=== PATIENT | female | born 1930 | race Caucasian/White ===

== ENCOUNTER 2017-02-23 18:17 | Emergency (ER) | payer OTHER ==
[~2017-02-23] VITALS: Ht 157.5 cm; Wt 72.6 kg
[2017-02-23 19:24] VITALS: BP 119/59
[2017-02-23 20:12] LABS: BASOPHILS % (AUTO) 0.6 % (0.0-2.0); EOSINOPHILS # (AUTO) 0.2 K/uL (0-0.4); EOSINOPHILS % (AUTO) 2.8 % (0.0-4.0); HEMATOCRIT 44.7 % (36-48); HEMOGLOBIN 15.1 g/dL (12.0-16.0); LYMPHOCYTES # (AUTO) 1.2 K/uL (2.5-16.5); LYMPHOCYTES % (AUTO) 14.7 % (20.5-51.1); MEAN CORPUSCULAR HEMOGLOBIN 30 pg (27-31); MEAN CORPUSCULAR HGB CONC 34 g/dL (33-37); MEAN CORPUSCULAR VOLUME 89 fL (80-94); MONOCYTES # (AUTO) 0.7 K/uL (0.8-1.0); NEUTROPHILS # (AUTO) 6.2 K/uL (1.8-7.7); NEUTROPHILS % (AUTO) 73.9 % (42.2-75.2); PLATELET COUNT (AUTO) 177 K/uL (140-450); RED BLOOD CELL COUNT(AUTO) 5.05 MIL/uL (4.20-5.40); RED CELL DISTRIBUTION WIDTH 13.1 % (11.6-13.7); WHITE BLOOD COUNT (AUTO) 8.3 K/uL (4.8-10.8)
[2017-02-23 20:28] LABS: ANION GAP 14.5 (8-16); CALCIUM 8.4 mg/dL (8.5-10.1); CARBON DIOXIDE 24.7 mmol/L (21-32); CHLORIDE 101 mmol/L (98-107); CREATININE 1.1 mg/dL (0.6-1.3); GLUCOSE 217 mg/dL (74-106); POTASSIUM 5.2 mmol/L (3.5-5.1); SODIUM SERUM 135 mmol/L (136-145); UREA NITROGEN, BLOOD 25 mg/dL (7-18)
[2017-02-23 20:34] LABS: ALANINE AMINOTRANSFERASE 224 U/L (12-78); ALBUMIN 3.1 g/dL (3.4-5.0); ALKALINE PHOSPHATASE 159 U/L (46-116); ASPARTATE AMINOTRANSFERASE 181 U/L (15-37); LIPASE 233 U/L (73-393); TOTAL BILIRUBIN 1.5 mg/dL (0.0-1.0); TOTAL PROTEIN, SERUM 7.1 g/dL (6.4-8.2)
--- NOTE | 2017-02-23 21:31 | NUR ---
TO ER BED 8
--- NOTE | 2017-02-23 21:52 | NUR ---
86Y F BIB FAMILY C/O OF ABDOMINAL PAIN X1 WK. DENIES DIARRHEA AND VOMITTING, BUT HAS NAUSEA. NO DISTRESS NOTED.
[2017-02-23 23:10] VITALS: BP 119/59
--- NOTE | 2017-02-23 23:10 | NUR ---
Patient discharged with v/s stable. Written and verbal after care instructions given and explained. Patient alert, oriented and verbalized understanding of instructions. Ambulatory with steady gait. All questions addressed prior to discharge. ID band removed. Patient advised to follow up with PMD. Rx of PRILOSEC given. Patient educated on indication of medication including possible reaction and side effects. Opportunity to ask questions provided and answered.
== END 2017-02-23 23:10 | disposition home or self-care (01) ==
LOC: MED 18:17
DX: R10.13 Epigastric pain (principal); R79.89 Other specified abnormal findings of blood chemistry; E11.9 Type 2 diabetes mellitus without complications; I10 Essential (primary) hypertension
CPT/HCPCS: 36415; 80053; 81002; 83690; 84484; 85025; 99285

== ENCOUNTER 2018-08-31 14:27 | Emergency (ER) | payer OTHER ==
[~2018-08-31] VITALS: Ht 152.4 cm; Wt 75.7 kg
[2018-08-31 14:51] VITALS: BP 152/67
[2018-08-31 16:38] LABS: BASOPHILS # (AUTO) 0.1 K/uL (0.00-0.22); BASOPHILS % (AUTO) 1.4 % (0.0-2.0); EOSINOPHILS # (AUTO) 0.1 K/uL (0-0.4); EOSINOPHILS % (AUTO) 2.3 % (0.0-4.0); HEMATOCRIT 39.1 % (36-48); HEMOGLOBIN 13.2 g/dL (12.0-16.0); LYMPHOCYTES # (AUTO) 1.4 K/uL (2.5-16.5); LYMPHOCYTES % (AUTO) 29.6 % (20.5-51.1); MEAN CORPUSCULAR HEMOGLOBIN 31 pg (27-31); MEAN CORPUSCULAR HGB CONC 34 g/dL (33-37); MONOCYTES # (AUTO) 0.5 K/uL (0.8-1.0); MONOCYTES % (AUTO) 11.2 % (1.7-9.3); NEUTROPHILS # (AUTO) 2.6 K/uL (1.8-7.7); NEUTROPHILS % (AUTO) 55.5 % (42.2-75.2); PLATELET COUNT (AUTO) 137 K/uL (140-450); RED BLOOD CELL COUNT(AUTO) 4.21 MIL/uL (4.20-5.40); RED CELL DISTRIBUTION WIDTH 14.5 % (11.6-13.7); WHITE BLOOD COUNT (AUTO) 4.7 K/uL (4.8-10.8)
--- NOTE | 2018-08-31 16:48 | NUR ---
PATIENT PRESENTS TO ED WITH THE CHIEF C/O BLOOD SUGAR. ACCORDING TO SON BS HE CHECKED AT HOME WAS 417 AND 507. DENIES N/V/D; SKIN IS PINK/WARM/DRY; AAOX4 WITH EVEN AND STEADY GAIT; LUNGS CLEAR BL; HR EVEN AND REGULAR; PT DENIES ANY FEVER, CP, SOB, OR COUGH AT THIS TIME; PATIENT STATES PAIN OF 0/10 AT THIS TIME; VSS; PATIENT POSITIONED FOR COMFORT; HOB ELEVATED; BEDRAILS UP X2; BED DOWN. ER MD MADE AWARE OF PT STATUS.
[2018-08-31] MEDS ORDERED: NACL 0.9% 1,000 ML IV SCH (16:50)
[2018-08-31] MEDS ORDERED: INSULIN REGULAR, HUMAN 100 UNIT/ML VIAL SUBQ ONE (16:50)
[2018-08-31 16:58] LABS: ALBUMIN 2.3 g/dL (3.4-5.0); ANION GAP 7.1 (8-16); ASPARTATE AMINOTRANSFERASE 259 U/L (15-37); CARBON DIOXIDE 29.2 mmol/L (21-32); CHLORIDE 102 mmol/L (98-107); POTASSIUM 5.3 mmol/L (3.5-5.1); SODIUM SERUM 133 mmol/L (136-145); UREA NITROGEN, BLOOD 19 mg/dL (7-18)
[2018-08-31 17:04] LABS: GLUCOSE 509 mg/dL (74-106)
[2018-08-31 17:28] LABS: APPEARANCE,URINE CLEAR (CLEAR); COLOR,URINE YELLOW (YELLOW)
[2018-08-31 17:29] LABS: BILIRUBIN,URINE NEGATIVE (NEGATIVE); BLOOD, URINE NEGATIVE (NEGATIVE); LEUKOCYTE ESTERASE ,URINE NEGATIVE (NEGATIVE); NITRITE, URINE NEGATIVE (NEGATIVE); UGLUCOSE >=1000 (NEGATIVE)
--- NOTE | 2018-08-31 18:36 | NUR ---
BP 161/60 DR. MONTANO MADE AWARE.
--- NOTE | 2018-08-31 19:09 | NUR ---
REPORT GIVEN TO FISHER TRAP RN FOR CONTINUITY OF CARE. PT ON STABLE CONDITION.
--- NOTE | 2018-08-31 19:12 | NUR ---
REPORT RECEVIED FROM MARTA VILLAFUERTE
--- NOTE | 2018-08-31 19:13 | NUR ---
AWAITING DISCHARGE PAPERWORK FROM DR SINGH AT THIS TIME
[2018-08-31 19:56] VITALS: BP 161/60
--- NOTE | 2018-08-31 19:56 | NUR ---
Patient discharged with v/s stable. Written and verbal after care instructions given and explained. Patient alert, oriented and verbalized understanding of instructions. Ambulatory with steady gait. All questions addressed prior to discharge. ID band removed. Patient advised to follow up with PMD. Rx of VICTOZA PREFILLED PEN given. Patient educated on indication of medication including possible reaction and side effects. Opportunity to ask questions provided and answered.
== END 2018-08-31 19:35 | disposition home or self-care (01) ==
LOC: MED 14:27
DX: E11.65 Type 2 diabetes mellitus with hyperglycemia (principal); I10 Essential (primary) hypertension; E78.00 Pure hypercholesterolemia, unspecified; M19.90 Unspecified osteoarthritis, unspecified site; Z88.0 Allergy status to penicillin
CPT/HCPCS: 36415; 71045; 80053; 81003; 82948; 83690; 84484; 85025; 96360; 96372; 99285; J1815; Q0092; J7030

== ENCOUNTER 2019-04-22 17:10 | Inpatient (IN) | payer OTHER, MEDICAID ==
[~2019-04-22] VITALS: Ht 152.4 cm; Wt 58.1 kg
--- NOTE | 2019-04-22 07:20 | NUR ---
RECEIVED BEDSIDE REPORT FROM PROPRIETARY TRADER. PT A/O X1. HX DEMENTIA, SHOWS EVIDENCE OF CONFUSION. ABLE TO FOLLOW SIMPLE COMMANDS AND MAKE NEEDS KNOWN. STANDARD PRECAUTIONS. ALLERGY BRACELET. FALL RISK PRECAUTIONS IN PLACE. BED IN LOW POSITION. CALL LIGHT WITHIN REACH. YELLOW GOWN, SOCKS, SIGN, WRIST BAND. BED ALARM ACTIVE. ROOM AIR. NO SIGNS OF RESP DISTRESS. 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 DENIES PAIN. SKIN IS INTACT. L AC 20 G INFUSING NS WIDE OPEN. R WRIST 24 G INFUSING NS @250. PATENT AND INTACT. ABLE TO AMBULATE WITH ASSISTANCE. UNSTEADY GAIT. CONTINENT. DAUGHTER AT BEDSIDE. WILL CONTINUE TO MONITOR.
[2019-04-22 17:31] VITALS: BP 158/81
--- NOTE | 2019-04-22 17:38 | NUR ---
PT TO BED 3 WITH SON
--- NOTE | 2019-04-22 17:41 | NUR ---
88 Y FEMALE BIB SON C/O HIGH BLOOD SUGAR. REFERRED TO ED BY [facility]. C/O DIZZINESS, FATIGUE, POLYURIA, WEAKNESS X 3 DAYS. PT A&OX3 MINUS TIME. PT AT BASELINE PER SON. PT DENIES PAIN. VSS AT THIS TIME. PT INCONTINENT. BED IS DOWN, LOCKED, BED RAIL X 1, ERMD TO SEE PT. HX: DIABETES, HTN, HIGH CHOLESTEROL RX: PITO MIMS BS: JUAN LUIS
--- NOTE | 2019-04-22 17:47 | NUR ---
DR TORRES AT BEDSIDE
[2019-04-22] MEDS ORDERED: NACL 0.9% 1,000 ML IV ONE ×2 (17:50→19:00)
--- NOTE | 2019-04-22 18:02 | NUR ---
lab at bedside
--- NOTE | 2019-04-22 18:17 | NUR ---
PTS SON STATES PT IS UNABLE TO GIVE URINE AT THIS TIME. DOESNT WANT HER TO BE STRAIGHT CATHED YET. WOULD LIKE TO WAIT AND LET PT TRY TO USE RESTROOM
[2019-04-22 18:21] LABS: BASOPHILS % (AUTO) 0.7 % (0.0-2.0); EOSINOPHILS % (AUTO) 0.7 % (0.0-4.0); HEMOGLOBIN 13.1 g/dL (12.0-16.0); LYMPHOCYTES # (AUTO) 0.7 K/uL (2.5-16.5); LYMPHOCYTES % (AUTO) 13.9 % (20.5-51.1); MEAN CORPUSCULAR HEMOGLOBIN 32 pg (27-31); MEAN CORPUSCULAR HGB CONC 34 g/dL (33-37); MEAN CORPUSCULAR VOLUME 93.6 fL (80-94); MONOCYTES # (AUTO) 0.4 K/uL (0.8-1.0); MONOCYTES % (AUTO) 6.7 % (1.7-9.3); NEUTROPHILS # (AUTO) 4.1 K/uL (1.8-7.7); PLATELET COUNT (AUTO) 114 K/uL (140-450); RED BLOOD CELL COUNT(AUTO) 4.16 MIL/uL (4.20-5.40); RED CELL DISTRIBUTION WIDTH 13.4 % (11.6-13.7); WHITE BLOOD COUNT (AUTO) 5.3 K/uL (4.8-10.8)
--- NOTE | 2019-04-22 18:32 | NUR ---
PT AMB TO RESTROOM WITH ASSISTANCE FROM SON
[2019-04-22] MEDS ORDERED: SITA100T8 PO (18:47)
[2019-04-22] MEDS ORDERED: BENA20TA PO (18:49)
[2019-04-22] MEDS ORDERED: LOSA100T51 PO (18:50)
[2019-04-22] MEDS ORDERED: LIRA6SOL SC (18:51)
[2019-04-22 18:55] LABS: ALBUMIN 2.6 g/dL (3.4-5.0); ANION GAP 8.9 (8-16); ASPARTATE AMINOTRANSFERASE 39 U/L (15-37); CARBON DIOXIDE 25.5 mmol/L (21-32); CHLORIDE 98 mmol/L (98-107); CREATININE 1.1 mg/dL (0.6-1.3); POTASSIUM 4.4 mmol/L (3.5-5.1); SODIUM SERUM 128 mmol/L (136-145); TOTAL BILIRUBIN 0.8 mg/dL (0.0-1.0); UREA NITROGEN, BLOOD 25 mg/dL (7-18)
[2019-04-22 18:57] LABS: GLUCOSE 727 mg/dL (74-106)
--- NOTE | 2019-04-22 18:59 | NUR ---
727 BS REPORTED FROM LAB
[2019-04-22] MEDS ORDERED: INSULIN REGULAR, HUMAN 100 UNIT/ML VIAL IVP ONE (19:00)
[2019-04-22 19:07] LABS: APPEARANCE,URINE CLEAR (CLEAR); BILIRUBIN,URINE NEGATIVE (NEGATIVE); COLOR,URINE YELLOW (YELLOW); LEUKOCYTE ESTERASE ,URINE NEGATIVE (NEGATIVE); NITRITE, URINE NEGATIVE (NEGATIVE); UGLUCOSE 3+ (NEGATIVE)
[2019-04-22 19:15] LABS: BLOOD, URINE NEGATIVE (NEGATIVE)
[2019-04-22] MEDS ORDERED: DOCUSATE SODIUM 100 MG GELCAP PO PRN (19:15)
[2019-04-22] MEDS ORDERED: ACETAMINOPHEN 325 MG TAB PO PRN (19:15)
[2019-04-22] MEDS ORDERED: HYDROcodone/APAP 5/325 MG 1 TAB TAB PO PRN (19:15)
[2019-04-22] MEDS ORDERED: ONDANSETRON 4 MG/2 ML VIAL IM/IVP PRN (19:15)
[2019-04-22] MEDS ORDERED: MORPHINE SULFATE 2 MG/ML SYR IVP PRN (19:15)
--- NOTE | 2019-04-22 19:20 | NUR ---
Patient will be admitted to care of EVELYNE. Admited to TELE. Will go to room 122B. Belongings list completed. Report to NILS LOZANO. PT HAS 900 ML NS STILL RUNNING IN R WRIST AT 250 MLS/HR AND 100 ML NS STILL RUNNING WIDE OPEN L AC
[2019-04-22] MEDS ORDERED: DEXTROSE 50% 50 ML SYR IVP PRN (19:35)
[2019-04-22 19:39] LABS: PROTHROMBIN TIME 10.5 secs (10.8-13.4)
[2019-04-22] MEDS ORDERED: MEDICATION REC. PHARMACY CONS. 1 EA MISC MC PRN (19:40)
[2019-04-22 19:46] LABS: MAGNESIUM 2.2 mg/dL (1.8-2.4); PHOSPHORUS 3.5 mg/dL (2.5-4.9); THYROID STIMULATING HORMONE 0.62 uIU/mL (0.34-3.74)
[2019-04-22] MEDS: NACL 0.9% 1,000 ML IV SCH (20:30)
--- NOTE | 2019-04-22 21:00 | NUR ---
ADMINISTERED SCHEDULED MEDS. EDUCATED ON SIDE EFFECTS. VERBALIZED UNDERSTANDING. BLOOD GLUCOSE 443. ADMINISTERED 10UNITS HUMALOG SLIDING SCALE PER PROTOCOL. TOLERATED WELL. WILL CONTINUE TO MONITOR.
[2019-04-22] MEDS: BLOOD GLUCOSE MONITORING 1 DEV DEV FS SCH (21:11)
[2019-04-22] MEDS: INSULIN LISPRO SLIDING SCALE 100 UNITS/ML VIAL SUBQ PRN (21:25)
--- NOTE | 2019-04-22 22:30 | NUR ---
PT CONFUSED A/O X1. SPEAKING [place]ER ABOUT GOING HOME. CHECKING THE DOORS. WASHING DISHES. AND HER YOUNG CHILDREN CRYING. ASSISTED BACK TO BED. PT UNCOOPERATIVE. REFUSED TO GO BACK TO BED. WILL CONTINUE TO MONITOR.
--- NOTE | 2019-04-22 23:00 | NUR ---
PT UP AWAKE AND AMBULATING. ADVISED TO SIT IN BED. REFUSED. UNSTEADY GAIT. PT UNCOOPERATIVE. WILL CONTINUE TO MONITOR.
--- NOTE | 2019-04-22 23:15 | NUR ---
CALLED DAUGHTER TO GET BASELINE OF PT'S CONFUSION. DAUGHTER REQUESTED TO ADVOCATE TO MD TO ADMINISTER MEDICATION TO ASSIST PT TO SLEEP. DAUGHTER STATES THAT SHE IS CONFUSED DAILY AND THAT PT IS VERY INDEPENDENT. SHE OVERESTIMATES HER OWN LIMITATIONS. WILL CONTINUE TO MONITOR.
--- NOTE | 2019-04-22 23:30 | NUR ---
ATTEMPTED TO GIVE MELATONIN PRN PO. PT REFUSED. EDUCATED ON SIDE EFFECTS. PT REFUSED. UNCOOPERATIVE. WILL CONTINUE TO MONITOR.
[2019-04-22] MEDS: MELATONIN 3 MG TAB PO PRN (23:34)
--- NOTE | 2019-04-22 23:45 | NUR ---
PT REQUESTED TO CALL HER CHILDREN. CALLED DAUGHTER SUNIL, TO ASSIST WITH CALMING PT. WILL CONTINUE TO MONITOR.
[2019-04-22] MEDS ORDERED: HALOPERIDOL IM 5 MG/ML VIAL IM ONE (23:50)
[2019-04-23] VITALS: BP 166/71
--- NOTE | 2019-04-23 | NUR ---
PT UNCOOPERATIVE. CONFUSED. WALKING AROUND UNIT. UNSTEADY GAIT. NEEDS ASSISTANCE, UNABLE TO AMBULATE ALONE. DIRECTED BY MD TO GIVE PT HALDOL PRN DOSE. EDUCATED. CHARGE NURSE, AND HAIR ASSISTANT AT BEDSIDE FOR ASSISTANCE. TOLERATED WELL.
[2019-04-23] MEDS ORDERED: HALOPERIDOL IM 5 MG/ML VIAL ONE (00:04)
[2019-04-23] MEDS: BLOOD GLUCOSE MONITORING 1 DEV DEV FS SCH ×4 (00:15→20:34)
--- NOTE | 2019-04-23 00:15 | NUR ---
BLOOD SUGAR CHECKED 374. MADE MD AWARE. HE DIRECTED TO GIVE 4 UNITS INSULIN HUMALOG. EDUCATED PT ON SIDE EFFECTS AND REASON FOR INSULIN. VERBALIZED UNDERSTANDING. WILL CONTINUE TO MONITOR.
--- NOTE | 2019-04-23 01:52 | NUR ---
PT REMAIN AWAKE UNCOOPERATIVE IN CHAIR AT BEDSIDE. REORIENTED HER TO THE DATE AND TIME AND ASKED IF SHE COULD GO INTO BED. PT REFUSED. REMINDED PT THAT HER IV FLUIDS NEED TO BE CONNECTED TO HER IV SITE. PT REFUSED TO HAVE FLUIDS CONNECTED. WILL CONTINUE TO MONITOR AT BEDSIDE.
--- NOTE | 2019-04-23 03:14 | NUR ---
PT REFUSED TO HAVE TELE MONITOR ON. PT PULLED OFF TELE MONITOR. I MADE MD, CHARGE, AND SENIOR CONTROL SYSTEMS ENGINEER AWARE. PT IS IN STABLE CONDITION. WILL CONTINUE TO MONITOR.
[2019-04-23 04:00] VITALS: BP 168/72
--- NOTE | 2019-04-23 04:10 | NUR ---
ASSISTED PT INTO BED. PT COOPERATED WITH GOING INTO BED. NOW LAYING IN BED. RECONNECTED PT TO TELE MONITOR. NO SIGNS OF DISTRESS. BED IN LOW POSITION. CALL LIGHT WITHIN REACH. WILL CONTINUE TO MONITOR.
--- NOTE | 2019-04-23 04:15 | NUR ---
PT REFUSED TO BE PUT BACK ON FLUID ON IV PUMP. WILL CONTINUE TO MONITOR.
--- NOTE | 2019-04-23 05:29 | NUR ---
PT REFUSED LAB DRAW BY MANAGER BATTERY. PT REMOVED TELE MONITOR. ADVISED TO KEEP IT ON AND READJUST. PT REFUSED. WILL CONTINUE TO MONITOR.
--- NOTE | 2019-04-23 05:45 | NUR ---
ASSISTED TO USE BEDSIDE COMMODE. TOLERATED WELL. NO SIGNS OF DISTRESS. REPOSITIONED IN BED WITH ASSIST OF REVENUE INVESTIGATOR. WILL CONTINUE TO MONITOR.
[2019-04-23] MEDS: INSULIN LISPRO SLIDING SCALE 100 UNITS/ML VIAL SUBQ PRN ×3 (06:53→20:42)
--- NOTE | 2019-04-23 06:56 | NUR ---
BLOOD SUGAR CHECKED. 188. INSULIN COVERAGE NEEDED. 2 UNITS WILL BE GIVEN SUB Q. EDUCATED AND TOLERATED WELL. NO SIGNS OF DISTRESS. CALL LIGHT WITHIN REACH. WILL CONTINUE TO MONITOR.
--- NOTE | 2019-04-23 07:01 | NUR ---
WILL ENDORSE PT TO DAYSCELIA HIGUERA. PT IN STABLE CONDITION. BED IN LOW POSITION. CALL LIGHT WITHIN REACH. WILL CONTINUE TO MONITOR.
--- NOTE | 2019-04-23 07:21 | NUR ---
RECEIVED BEDSIDE REPORT FROM TRAFFIC LINE PAINTER RN. PT A/O X1. SHOWS EVIDENCE OF CONFUSION BUT NO HX OF DEMENTIA ACCORDING TO SON AND PT HAS BEEN EXHIBITING CONFUSION FOR A FEW WEEKS NOW. ABLE TO FOLLOW SIMPLE COMMANDS AND MAKE NEEDS KNOWN BUT NEEDS CONSTANT REINFORCEMENT AND REMINDERS FOR SAFETY AND REORIENTATION TO REALITY. STANDARD PRECAUTIONS. FALL RISK PRECAUTIONS IN PLACE. BED IN LOW POSITION. CALL LIGHT WITHIN REACH. YELLOW GOWN, SOCKS, SIGN, WRIST BAND. BED ALARM ACTIVE. ROOM AIR. NO SIGNS OF RESP DISTRESS. 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 DENIES PAIN. SKIN IS INTACT. L AC 20 G AND R WRIST 24 G PATENT AND INTACT, SALINE LOCKED DUE TO PT REFUSING FLUIDS AT THIS TIME. ABLE TO AMBULATE WITH ASSISTANCE. UNSTEADY GAIT. CONTINENT. SON AT BEDSIDE. WILL ROUND FREQUENTLY ON PT.
--- NOTE | 2019-04-23 07:52 | NUR ---
PATIENT HAS BEEN SCREENED AND CATEGORIZED MODERATE NUTRITION RISK. PATIENT WILL BE SEEN WITHIN 3-5 DAYS OF ADMISSION. 04/25/[address]
[2019-04-23 08:00] VITALS: BP 158/85
[2019-04-23] MEDS: NACL 0.9% 1,000 ML IV SCH ×2 (08:27→20:46)
[2019-04-23] MEDS ORDERED: LOSARTAN 50 MG TAB PO SCH (09:00)
[2019-04-23] MEDS ORDERED: BENAZEPRIL 10 MG TAB PO SCH (09:00)
--- NOTE | 2019-04-23 09:38 | NUR ---
ADMINISTERED MORNING MEDS TO PT. PT TOLERATED THEM WELL. ALL NEEDS CURRENTLY MET. PT SON AT BEDSIDE HELPING WITH PT. WILL CONTINUE TO ROUND FREQUENTLY. BED IN LOWEST POSITION, CALL LIGHT WITHIN REACH.
[2019-04-23 09:56] LABS: BASOPHILS % (AUTO) 0.4 % (0.0-2.0); EOSINOPHILS # (AUTO) 0.1 K/uL (0-0.4); EOSINOPHILS % (AUTO) 1.4 % (0.0-4.0); HEMATOCRIT 40.3 % (36-48); HEMOGLOBIN 13.8 g/dL (12.0-16.0); LYMPHOCYTES # (AUTO) 1.9 K/uL (2.5-16.5); LYMPHOCYTES % (AUTO) 21.7 % (20.5-51.1); MEAN CORPUSCULAR HEMOGLOBIN 31 pg (27-31); MEAN CORPUSCULAR HGB CONC 34 g/dL (33-37); MEAN CORPUSCULAR VOLUME 91.5 fL (80-94); MONOCYTES # (AUTO) 0.6 K/uL (0.8-1.0); MONOCYTES % (AUTO) 6.5 % (1.7-9.3); NEUTROPHILS # (AUTO) 6.2 K/uL (1.8-7.7); PLATELET COUNT (AUTO) 127 K/uL (140-450); RED BLOOD CELL COUNT(AUTO) 4.41 MIL/uL (4.20-5.40); RED CELL DISTRIBUTION WIDTH 13.3 % (11.6-13.7); WHITE BLOOD COUNT (AUTO) 8.8 K/uL (4.8-10.8)
[2019-04-23 10:50] LABS: ANION GAP 10.1 (8-16); CARBON DIOXIDE 26.2 mmol/L (21-32); CHLORIDE 106 mmol/L (98-107); CREATININE 0.7 mg/dL (0.6-1.3); GLUCOSE 185 mg/dL (74-106); POTASSIUM 3.3 mmol/L (3.5-5.1); SODIUM SERUM 139 mmol/L (136-145); UREA NITROGEN, BLOOD 19 mg/dL (7-18)
[2019-04-23 10:58] LABS: CHOL/HDL RATIO 2.1 (1-4.5)
--- NOTE | 2019-04-23 11:52 | NUR ---
PT RESTING IN BEDSIDE CHAIR EATING LUNCH. ALL NEEDS CURRENTLY MET. NO SIGNS OF PAIN OR DISTRESS. SON AT BEDSIDE HELPING FEED PT. WILL CONTINUE TO ROUND FREQUENTLY. BED IN LOWEST POSITION AND CALL LIGHT WITHIN REACH.
[2019-04-23 12:00] VITALS: BP 150/74
--- NOTE | 2019-04-23 13:48 | NUR ---
PT RESTING IN BED. NO SIGNS OF PAIN OR DISTRESS. BED IN LOW POSITION, CALL LIGHT WITHIN REACH. WILL CONTINUE TO ROUND FREQUENTLY.
[2019-04-23] MEDS ORDERED: POTASSIUM CHLORIDE 10 MEQ TABER PO SCH (14:00)
[2019-04-23] MEDS ORDERED: ALPR0.5T2 PO (15:27)
--- NOTE | 2019-04-23 15:57 | NUR ---
PT SLEEPING IN BED. SON AT BEDSIDE. NO SIGNS OD PAIN OR SOB AT THIS TIME. WILL CONTINUE TO ROUND FREQUENTLY. BED IN LOW POSITION, CALL LIGHT WITHIN REACH.
[2019-04-23 16:00] VITALS: BP 154/65
[2019-04-23] MEDS ORDERED: LORazepam 2 MG/ML VIAL IVP PRN (16:45)
--- NOTE | 2019-04-23 17:48 | NUR ---
PT SITTING UP IN BED EATING DINNER. SON AT BEDSIDE ASSISTING HER WITH HER MEAL. NO SIGNS OF PAIN OR DISTRESS. WILL CONTINUE TO ROUND FREQUENTLY.
--- NOTE | 2019-04-23 19:26 | NUR ---
ENDORSED PT TO MEDICAL SOCIOLOGIST FOR CONTINUITY OF CARE. PT IN STABLE CONDITION AT THIS TIME.
--- NOTE | 2019-04-23 19:27 | NUR ---
RECEIVED REPORT FROM AM SHIFT NURSE FOR CONTINUITY OF CARE. PATIENT LYING DOWN IN BED, AWAKE, ALERT, FAMILY MEMBER AT BEDSIDE. PATIENT IS ON ROOM AIR. IV ON RIGHT HAND/WRIST 24 GA WITH NO FLUID INFUSING AT THIS TIME. PATIENT DENIES PAIN AT THIS TIME. BED IS IN LOW POSITION, SIDE RAILS ARE UP, AND CALL LIGHT IS WITHIN REACH. WILL MONITOR PATIENT THROUGHOUT SHIFT.
[2019-04-23 20:00] VITALS: BP 171/67
--- NOTE | 2019-04-23 20:00 | NUR ---
SON OF PATIENT BROUGHT AT HOME TIMOTHY. ACCORDING TO SON DR BOSTON WANTED HIM TO BRING THE MEDICATION. PLACED MEDICATION AND 4 STERILE NEEDLES IN PHARMACEUTICAL BAG, SEALED, SON SIGNED AND PLACED IN FRIDGE IN MEDICATION ROOM. CHARGE NURSE RODGER RAY.
--- NOTE | 2019-04-23 20:42 | NUR ---
BG 202 GAVE 4 UNITS HUMALOG
[2019-04-23] MEDS: MELATONIN 3 MG TAB PO PRN (20:43)
--- NOTE | 2019-04-23 21:39 | NUR ---
PATIENT AGITATED AND TRYING TO GET OUT OF BED, GAVE ATIVAN
[2019-04-23] MEDS ORDERED: amLODIPine 5 MG TAB PO SCH (23:00)
--- NOTE | 2019-04-23 23:00 | NUR ---
PATIENT SLEEPING IN BED, HOB AT 30 DEGREES, BED ALARM ON.
[2019-04-24] VITALS (9 sets, daily range): BP systolic 91–194; BP diastolic 55–98
--- NOTE | 2019-04-24 00:32 | NUR ---
BP 166/95, [facility]
--- NOTE | 2019-04-24 02:00 | NUR ---
MADE ROUNDS, PATIENT LYING IN BED ASLEEP, WITH NO SIGNS OF DISTRESS. WILL CONTINUE TO MONITOR PATIENT.
--- NOTE | 2019-04-24 02:40 | NUR ---
NOTED BRUISES ON LEFT INNER THIGH AND LEFT OUTER KNEE AREA THAT APPEARS TO BE HEALING. SKIN IS INTACT.
[2019-04-24] MEDS ORDERED: hydrALAZINE 20 MG/ML VIAL IVP SCH (05:00)
--- NOTE | 2019-04-24 05:00 | NUR ---
PATIENT LYING DOWN IN BED, ASLEEP. ADMINISTERED HYDRALAZINE 10 MG IV PUSH ORDERED. WILL CHECK VITAL SIGNS AFTER AN HOUR. Addendum: 04/24/19 at 0532 by Betty Fernandez RN ADDITIONAL INFORMATION: BP 194/83, T 97.3, HR 94, RR 16, O2 - 99%
[2019-04-24] MEDS: BLOOD GLUCOSE MONITORING 1 DEV DEV FS SCH ×4 (05:13→20:37)
[2019-04-24] MEDS: INSULIN LISPRO SLIDING SCALE 100 UNITS/ML VIAL SUBQ PRN ×4 (05:56→20:39)
--- NOTE | 2019-04-24 06:00 | NUR ---
PATIENT REASSESSED AND VITAL SIGNS TAKEN AND CHARTED. BP 175/70 (81) HR 105. NOTIFIED MD AND WILL ENDORSE TO AM SHIFT NURSE.
--- NOTE | 2019-04-24 07:02 | NUR ---
ENDORSED PATIENT TO AM SHIFT NURSE FOR CONTINUITY OF CARE. PATIENT LYING DOWN, ASLEEP, WITH NO SIGNS OF DISTRESS. PATIENT IS IN STABLE CONDITION.
[2019-04-24 07:15] LABS: ANION GAP 14.5 (8-16); CARBON DIOXIDE 22.3 mmol/L (21-32); CHLORIDE 105 mmol/L (98-107); CREATININE 0.7 mg/dL (0.6-1.3); GLUCOSE 173 mg/dL (74-106); POTASSIUM 3.8 mmol/L (3.5-5.1); SODIUM SERUM 138 mmol/L (136-145); UREA NITROGEN, BLOOD 18 mg/dL (7-18)
--- NOTE | 2019-04-24 07:40 | NUR ---
PATIENT WAS AWAKE, ALERT. PATIENT WAS FOUND OFF OXYGEN, SPO2 83%, NO DISTRESS, SOB NOTED. PATIENT WAS PLACED ON 3L NC SPO2 92%. SKIN DRY AND WARM. IV PATENT AND INTACT. COMPLAINED OF CONSTIPATION, AND STOMACH CRAMP, WILL MEDICATE PER ORDER. PLAN OF CARE WAS DISCUSSED WITH PATIENT. BED AT LOW POSITION, SIDE RAILS UP. CALL LIGHT WITHIN REACH Addendum: 04/24/19 at 0800 by Starr Smith RN WRONG PATIENT
--- NOTE | 2019-04-24 07:50 | NUR ---
PATIENT WAS AWAKE, TAKING OFF HER CLOTHING, NOT FOLLOW COMMAND. RESPIRATION EVEN, UNLABOR ON ROOM AIR. SKIN DRY AND WARM. IV PATENT AND INTACT. PLAN OF CARE WAS DISCUSSED WITH PATIENT, PT UNABLE TO COMPREHEND. BED AT LOW POSITION, SIDE RAILS UP. BED ALARM ACTIVE
[2019-04-24] MEDS ORDERED: LIRAGLUTIDE 1.2 MG SCH (09:00)
[2019-04-24] MEDS: BENAZEPRIL 10 MG TAB PO SCH ×2 (09:15→20:33)
[2019-04-24] MEDS: VICTOZA PEN SUBQ SCH (09:18)
[2019-04-24 09:49] LABS: BASOPHILS # (AUTO) 0.1 K/uL (0.00-0.22); BASOPHILS % (AUTO) 0.8 % (0.0-2.0); EOSINOPHILS # (AUTO) 0.2 K/uL (0-0.4); EOSINOPHILS % (AUTO) 2.4 % (0.0-4.0); HEMATOCRIT 41.9 % (36-48); LYMPHOCYTES # (AUTO) 2.2 K/uL (2.5-16.5); MEAN CORPUSCULAR HEMOGLOBIN 32 pg (27-31); MEAN CORPUSCULAR HGB CONC 35 g/dL (33-37); MONOCYTES # (AUTO) 0.7 K/uL (0.8-1.0); MONOCYTES % (AUTO) 9.6 % (1.7-9.3); NEUTROPHILS # (AUTO) 4.5 K/uL (1.8-7.7); NEUTROPHILS % (AUTO) 58.2 % (42.2-75.2); PLATELET COUNT (AUTO) 141 K/uL (140-450); RED CELL DISTRIBUTION WIDTH 13.6 % (11.6-13.7); WHITE BLOOD COUNT (AUTO) 7.7 K/uL (4.8-10.8)
[2019-04-24 09:57] LABS: HEMOGLOBIN 14.4 g/dL (12.0-16.0)
--- NOTE | 2019-04-24 10:18 | NUR ---
ENDORSEMENT GIVEN TO MASON RN FOR CONTINUITY OF CARE. PATIENT IS STABLE AT THIS TIME
--- NOTE | 2019-04-24 11:00 | NUR ---
RECEIVED REPORT ABOUT THE PT FROM MARTA CUEVAS, PT IS ASLEEP LYING ON THE BED WITH SIDE RAILS UP AND CALL LIGHT WITHIN REACH, HAS AN IV LINE ON THE RT HAND G.[address], NO SIGN OF DISTRESS NOTED AND WILL MONITOR PT.
[2019-04-24] MEDS: NACL 0.45% 1,000 ML IV SCH (11:54)
--- NOTE | 2019-04-24 11:54 | NUR ---
PT IS AWAQKE AND LYING ON THE BED WITH SON ON THE BEDSIDE, BLOOD GLUCOSE CHECK DONE AND RESULT IS 204, 4 UNITS INSULIN WAS GIVEN JULIÁN THE LEFT UA, PT TOLERATED IT. WILL MONITOR PT.
--- NOTE | 2019-04-24 12:49 | NUR ---
04/24/19 RD INITIAL ASSESSMENT COMPLETED PLEASE REFER TO NUTRITION ASSESSMENT UNDER CARE ACTIVITY FOR ESTIMATED NUTRITIONAL NEEDS. [facility]. [facility] TOLERATED 2. DIABETES EDUCATION WAS PROVIDED 3. RD TO FOLLOW-UP 5-7 DAYS, LOW RISK LELAND ZIEGLER RD
--- NOTE | 2019-04-24 16:30 | NUR ---
PT WAS GIVEN 4 UNITS INSULIN NOW FOIR A BLOOD GLUCOSE OF 202. WILL MONITOR PT.
--- NOTE | 2019-04-24 16:45 | NUR ---
PERIPHERAL LINE ON THE RT WRIST WAS INFILTRATED AND WAS REMOVED.
--- NOTE | 2019-04-24 17:00 | NUR ---
A NEW PERIPHERAL LINE WAS INSERTED TO PT ON THE LEFT FOREARM G.22.
--- NOTE | 2019-04-24 19:17 | NUR ---
ENDORSED PT TO HEALTH INSPECTOR NURSE FOR CONTINUITY OF CARE.
--- NOTE | 2019-04-24 19:20 | NUR ---
RECEIVED FROM AM RN IN BED FEMALE 88 YEARS OLD PT. WANTING TO GET OUT OF BED. SON AT BEDSIDE WATCHING PT. CALL LIGHT WITH IN REACH AND CARE PLANS FOR THE NIGHT DISCUSSED WITH SON. IVF SITE INTACT AND NO INFILTRATION NOTED. TELEMETRY/CARDIAC MONITORING. DX. OF UNCONTROLLED DM.
[2019-04-24] MEDS ORDERED: LORazepam 2 MG/ML VIAL IVP ONE (20:30)
--- NOTE | 2019-04-24 20:40 | NUR ---
PT. VERY RESTLESS AND WANTING TO WALK IN THE HALLWAY. SON REQUESTED TO HAVE IV ATIVAN AGAIN RT HARD TO CONTROL PT. DAUGHTER OF PT. ALSO AGREED TO HAVE IV ATIVAN BE GIVEN AGAIN. RESIDENT MD IN HERE TO TALK TO THE FAMILY AND [id number] ATIVAN IV TO BE ADMINISTERED . SON AND DAUGHTER AT THIS TIME ENCOURAGED TO STAY FOR NOW TO PACIFY PT.
[2019-04-24] MEDS ORDERED: amLODIPine 5 MG TAB PO SCH ×2 (21:00)
[2019-04-24] MEDS ORDERED: LORazepam 2 MG/ML VIAL IVP SCH (21:00)
[2019-04-24] MEDS ORDERED: OLANZapine 2.5 MG TAB PO SCH (21:00)
--- NOTE | 2019-04-24 22:00 | NUR ---
PT. SLEEPING AT THIS TIME. FAMILY STILL HERE TO WATCH OVER HER. PREVIOUS 2100 HTN MEDICATION NOT TAKEN RT PT. SPITS MEDICATION OUT AND REFUSED TO TAKE IT. MADE RESIDENT MD AWARE.
[2019-04-25 00:02] VITALS: BP 137/48
[2019-04-25 03:36] VITALS: BP 104/43
--- NOTE | 2019-04-25 03:43 | NUR ---
ENDORSED TO THE NEXT RN FOR CONTINUITY OF CARE. DAUGHTER OF PT. IN HERE STILL WATCHING OVER MOTHER. NO COMPLAINTS DONE. VITAL SIGNS TAKEN AND PT. WOKE UP AND COMPLAINED. DAUGHTER PACIFIED HER AND WENT BACK TO SLEEP. CARDIAC TELEMETRY IN PLACE.
--- NOTE | 2019-04-25 03:44 | NUR ---
RECEIVED REPORT FROM NURSE MARCO A FOR CONTINUOUS OF CARE. PT STABLE, NO DISTRESS NOTED, DAUGHTER AT BEDSIDE, WILL CONTINUE TO MONITOR.
[2019-04-25] MEDS: NACL 0.45% 1,000 ML IV SCH (03:45)
[2019-04-25] MEDS: BLOOD GLUCOSE MONITORING 1 DEV DEV FS SCH ×2 (06:23→11:38)
[2019-04-25 07:12] LABS: BASOPHILS # (AUTO) 0.1 K/uL (0.00-0.22); BASOPHILS % (AUTO) 0.9 % (0.0-2.0); EOSINOPHILS # (AUTO) 0.1 K/uL (0-0.4); EOSINOPHILS % (AUTO) 1.6 % (0.0-4.0); HEMATOCRIT 39.2 % (36-48); HEMOGLOBIN 13.4 g/dL (12.0-16.0); LYMPHOCYTES % (AUTO) 28.1 % (20.5-51.1); MEAN CORPUSCULAR HEMOGLOBIN 32 pg (27-31); MEAN CORPUSCULAR HGB CONC 34 g/dL (33-37); MEAN CORPUSCULAR VOLUME 92.8 fL (80-94); MONOCYTES # (AUTO) 0.6 K/uL (0.8-1.0); MONOCYTES % (AUTO) 8.4 % (1.7-9.3); NEUTROPHILS # (AUTO) 4.4 K/uL (1.8-7.7); PLATELET COUNT (AUTO) 120 K/uL (140-450); RED BLOOD CELL COUNT(AUTO) 4.23 MIL/uL (4.20-5.40); RED CELL DISTRIBUTION WIDTH 13.8 % (11.6-13.7); WHITE BLOOD COUNT (AUTO) 7.2 K/uL (4.8-10.8)
--- NOTE | 2019-04-25 07:25 | NUR ---
ENDORSED PT TO DAY SHIFT NURSE LALI LOZANO, PT STABLE, NO DISTRESS NOTED, SON AT BEDSIDE, CALL LIGHT WITHIN REACH.
--- NOTE | 2019-04-25 07:26 | NUR ---
RECEIVED BED SIDE REPORT FROM BULLET SLUGS INSPECTOR XANDER LOZANO. PT SLEEPING, SON AT BEDSIDE, WALKER NEAR DOOR, L FOREARM 22G RUNNING 1/2 NS AT 50CC/HR. PT APPEARS IN NO RESPIRATORY DISTRESS AND IN NO PAIN. ON RA. WILL CONTINUE TO MONITOR
[2019-04-25 07:40] LABS: ANION GAP 11.6 (8-16); CARBON DIOXIDE 23.1 mmol/L (21-32); CHLORIDE 106 mmol/L (98-107); CREATININE 0.8 mg/dL (0.6-1.3); GLUCOSE 156 mg/dL (74-106); POTASSIUM 3.7 mmol/L (3.5-5.1); SODIUM SERUM 137 mmol/L (136-145); UREA NITROGEN, BLOOD 21 mg/dL (7-18)
[2019-04-25 08:00] VITALS: BP 132/69
--- NOTE | 2019-04-25 08:19 | NUR ---
PT AWAKE BUT SLEEPY BUT AROUSABLE. SON AT BEDSIDE. MAMADOU PRESENT. CAME TO SEE PT, SAID THAT IF BP AND SUGAR STABLE, OKAY OT DC AFTER LUNCH. CONSULT FOR PENDING. EDUCATED PT ON THE IMPORTANCE OF TAKING ALL OF ANTIDIABETIC AND INSULIN MEDS. PER SON, PT DOES NOT LET HIM INJECT HER WITH INSULIN. WILL CONTINUE TO MONITOR
[2019-04-25] MEDS: BENAZEPRIL 10 MG TAB PO SCH (08:40)
[2019-04-25] MEDS: VICTOZA PEN SUBQ SCH (08:41)
--- NOTE | 2019-04-25 09:45 | NUR ---
PT WORKED WITH PATIENT. PT NOTIFIED ME OF ELEVATED BP AFTER PT FINISHED WITH HER. BP WAS 213/96. SAT PT BACK TO BED, RE-TOOK BP AND NOW AT 125/74. PT IN NO RESPIRATORY DISTRESS AND APPEARS IN NO PAIN.
[2019-04-25] MEDS ORDERED: BENA20TA PO (11:28)
--- NOTE | 2019-04-25 11:28 | NUR ---
TALKED TO ME ANS SAID PT OKAY TO DC. NOTIFIED SON AND IS MADE AWARE. PT CURRENTLY SITTING ON THE EDGE OF THE BED WITH SON BY SIDE. PT HAD MODERATE BM, ASSISTED PT TO BED SIDE COMMODE. PT TRIED TO GET OUT OF BED EARLIER BUT REORIENTED PT. CALL LIGHT WITHIN REACH
--- NOTE | 2019-04-25 11:45 | NUR ---
NOTIFIED ABOUT CURRENT SUGAR 250. NO CHANGE IN ORDERS. NOTIFIED HIM ABOUT ELEVATED BP DURING PT, NO CHANGE IN ORDERS
[2019-04-25] MEDS: INSULIN LISPRO SLIDING SCALE 100 UNITS/ML VIAL SUBQ PRN (12:06)
--- NOTE | 2019-04-25 13:44 | NUR ---
PT DISCHARGED AND WALKED OFF OF UNIT. FAMILY AT BEDSIDE. HEALTHCARE MARKET CONSULTANT TOOK PT OFF UNIT WITH WHEELCHAIR. PERSONAL BELONGINGS PUT IN PERSONAL BELONGINGS BAG AND SON TOOK IT WITH HIM. DC INSTRUCTIONS AND RX MED GIVEN TO SON WHO SIGNED PAPERS FOR PT. IV TAKEN OUT FROM LEFT FOREARM, PRESSURE APPLIED, NO BLEEDING NOTED. TELE MONITOR TAKEN OUT EARLIER. EDUCATED PT AND SON ON THE IMPORTANCE OF CHECKING BLOOD SUGAR CONSISTENTLY AND ADMINISTERING JAUVIA AND VICTOZA INJECTION TO CONTROL BLOOD SUGAR. EXPLAINED THAT BP MED WAS INCREASED TO BID ORDERED BY . PT AND SON MADE AWARE. WRISTBAND TOOK OFF. PT IN STABLE CONDITION.
--- NOTE | 2019-04-25 15:16 | NUR ---
Critical Care Physician Assistant Note: Late entry for earlier today: I met with patient and patient's son Joshua Worthy at bedside. Both speak Nigerian. Per Joshua, patient has been confused and forgetful recently. I obtained information about patient from Joshua. He stated they will together and he would like patient to return home upon discharge. Patient's daughter Georgiana Lam is patient's IHSS. Georgiana visits daily at home. Either patient's daughter Ashley or patient's son Sathya drive patient to pcp's office ([facility]) located in [facility]. Patient does not have an existing Advance Directive for health care according to Sathya. Prior to hospital admission patient was not using any DME to ambulate nor was receiving home health services. Patient does not have any difficulty filling her prescriptions at pharmacy. I provided Sathya with education on Advance Directive for health care and provided him with a blank Advance Directive form. Financial Specialist and/or Station Installation Supervisor will follow up as needed.
== END 2019-04-25 13:44 | disposition home or self-care (01) | DRG 637 ==
LOC: MED 17:10 → MTU 19:16 → MMU 20:14 → MTU 04-23 09:07
PROVIDERS: ADMIT Family Medicine; ATTEND Family Medicine
DX: E11.65 Type 2 diabetes mellitus with hyperglycemia (principal); E43 Unspecified severe protein-calorie malnutrition; E87.1 Hypo-osmolality and hyponatremia; G90.8 Other disorders of autonomic nervous system; R32 Unspecified urinary incontinence; E66.9 Obesity, unspecified; Z71.3 Dietary counseling and surveillance; Z68.25 Body mass index [BMI] 25.0-25.9, adult; E78.00 Pure hypercholesterolemia, unspecified; E78.5 Hyperlipidemia, unspecified; I16.0 Hypertensive urgency; F03.90 Unspecified dementia, unspecified severity, without behavioral disturbance, psychotic disturbance, mood disturbance, and anxiety; E83.51 Hypocalcemia; I10 Essential (primary) hypertension; Z88.6 Allergy status to analgesic agent; Z88.0 Allergy status to penicillin; Z88.8 Allergy status to other drugs, medicaments and biological substances; Z79.899 Other long term (current) drug therapy; Z79.84 Long term (current) use of oral hypoglycemic drugs; Z90.710 Acquired absence of both cervix and uterus; Z91.14 Patient's other noncompliance with medication regimen
CPT/HCPCS: 36415; 70450; 71045; 80048; 80053; 81003; 82140; 82948; 83036; 83605; 83690; 83735; 83880; 84100; 84443; 84484; 85025; 85610; 85730; 87040; 87081; 93005; 93880; 96374; 97110; 97116; 97161-GP; 97530; 99285; J0360; J1630; J1644; J1815; J2060; Q0092